=== PATIENT | male | born 1995 | race Hispanic/Latino ===

== ENCOUNTER → 2023-06-26 | Outpatient (CLI) | payer BC ==
[~2023-06-26] MED LIST: CALC-131 PO; DIATR MEGLU/DIATRIZOATE SODIUM 30 ML BOTTLE ONE; DIPH1TAB24 PO; DRON10CA8 PO
== END | disposition home or self-care (01) ==
LOC: RAH 09:41
PROVIDERS: ATTEND Surgery
DX: K51.011 Ulcerative (chronic) pancolitis with rectal bleeding (principal); Z90.49 Acquired absence of other specified parts of digestive tract
CPT/HCPCS: 74270; Q9963